=== PATIENT | female | born 1980 | race Caucasian/White ===

== ENCOUNTER 2019-04-04 12:25 | Day surgery (SDC) | payer OTHER ==
[~2019-04-04] VITALS: Ht 171.4 cm; Wt 63.8 kg
[~2019-04-04 12:25] MED LIST: DEXT15DR17 EACHEYE; PNV1TABL85 PO
[2019-04-04] MEDS ORDERED: LACTATED RINGERS 1,000 ML IV SCH ×2 (12:32→18:30)
[2019-04-04] MEDS ORDERED: ACETAMINOPHEN 500 MG TABLET PO ONE (13:00)
[2019-04-04] MEDS ORDERED: SCOPOLAMINE PATCH, 1.5MG PATCH.TD72 TD ONE (13:00)
[2019-04-04] MEDS ORDERED: GABAPENTIN 300 MG CAPSULE PO ONE (13:00)
[2019-04-04 13:10] LABS: HCG UR SG 1.033 (1.003-1.030)
[2019-04-04] MEDS ORDERED: FENTANYL PF 100 MCG/2ML ONE (16:07)
[2019-04-04] MEDS ORDERED: MIDAZOLAM 1 MG/ML, 2ML ONE (16:07)
[2019-04-04] MEDS ORDERED: BUPIVACAINE/PF 0.25% ONE (16:08)
[2019-04-04] MEDS ORDERED: SILVER NITRATE STICK TP ONE (16:08)
[2019-04-04] MEDS ORDERED: EPINEPHRINE 1 MG/ML, 1ML ONE (16:08)
[2019-04-04] MEDS ORDERED: INTERCEED 3 X 4 INCH DRESSING ONE (16:08)
[2019-04-04] MEDS ORDERED: PROPOFOL 10 MG/ML, 20ML ONE (16:35)
[2019-04-04] MEDS ORDERED: DEXAMETHASONE 4 MG/ML, 1ML ONE (16:35)
[2019-04-04] MEDS ORDERED: LIDOCAINE-MPF 2% ,5ML ONE (16:35)
[2019-04-04] MEDS ORDERED: ONDANSETRON 2MG/ML, 2ML ONE (16:35)
[2019-04-04] MEDS ORDERED: OXYcodone 5 MG/5 ML ORAL.SOL UDC PO PRN (17:00)
[2019-04-04] MEDS ORDERED: HYDROmorphone 2 MG/ML, 1ML IVPush PRN (17:00)
[2019-04-04] MEDS ORDERED: HALOPERIDOL 5 MG/ML IV PRN (17:00)
[2019-04-04] MEDS ORDERED: FENTANYL PF 100 MCG/2ML IV PRN (17:00)
[2019-04-04] MEDS ORDERED: MEPERIDINE/PF 25MG/ML,1ML IVPush PRN (17:00)
[2019-04-04] MEDS ORDERED: PROMETHAZINE 25 MG/ML, 1ML IV PRN (17:00)
[2019-04-04] MEDS ORDERED: IBUPROFEN 600 MG TABLET PO PRN (18:30)
[2019-04-04] MEDS ORDERED: OXYcodone/APAP 5/325MG TABLET PO PRN (18:30)
[2019-04-04] MEDS ORDERED: OXYC-302 PO (18:40)
[2019-04-04] MEDS ORDERED: IBUP200T49 PO (18:40)
[2019-04-04] MEDS ORDERED: ONDA4TAB7 PO (18:41)
== END 2019-04-04 19:37 | disposition home or self-care (01) ==
LOC: OUT 12:25 → 4NE 17:45 → OUT 19:37
PROVIDERS: ATTEND Obstetrics & Gynecology
DX: D06.0 Carcinoma in situ of endocervix (principal)
CPT/HCPCS: 57522; 81025; 88305; 88307; J0171; J1100; J2250; J2405; J2704; J3010; J3490; J7120; G0378

== ENCOUNTER 2019-06-05 07:00 | Day surgery (SDC) | payer OTHER ==
[2019-06-02 16:29] LABS: BASOPHILS # (AUTO) 0.03 x10^3/uL (0-0.1); BASOPHILS % (AUTO) 0 % (0-1); EOSINOPHILS % (AUTO) 3 % (1-7); LYMPHOCYTES # (AUTO) 1.41 x10^3/uL (1-3.4); LYMPHOCYTES % (AUTO) 20 % (22-44); MD NO; MEAN CORPUSCULAR HEMOGLOBIN 30.5 pg (27.0-34.8); MEAN CORPUSCULAR HGB CONC 33.5 g/dL (32.4-35.8); MEAN CORPUSCULAR VOLUME 90.9 fL (80-100); MEAN PLATELET VOLUME 7.7 fL (7.4-10.4); MONOCYTES # (AUTO) 0.31 x10^3/uL (0.2-0.8); MONOCYTES % (AUTO) 4 % (2-9); NEUTROPHILS # (AUTO) 5.27 x10^3/uL (1.8-6.8); NEUTROPHILS % (AUTO) 73 % (42-75); PLATELET COUNT 426 x10^3/uL (130-400); RED BLOOD COUNT 4.47 x10^6/uL (3.82-5.3); RED CELL DISTRIBUTION WIDTH 12.4 % (9.6-15.2)
[2019-06-02 16:34] LABS: ALBUMIN 4.3 g/dL (3.4-5.0); ANION GAP 5 mmol/L (5-15); CALCIUM 9.1 mg/dL (8.5-10.1); CHLORIDE 106 mmol/L (98-107)
[2019-06-02 16:41] LABS: ALANINE AMINOTRANSFERASE 23 U/L (12-78); ALKALINE PHOSPHATASE 79 U/L (45-117); BILIRUBIN,TOTAL 0.6 mg/dL (0.2-1.0); CREATININE 0.81 mg/dL (0.55-1.02); INTERNATIONAL NORMALIZED RATIO 0.98 (0.93-1.1); PROTHROMBIN TIME 10.3 Seconds (9.6-11.5)
[~2019-06-05] VITALS: Ht 171.4 cm; Wt 63.3 kg
[~2019-06-05 07:00] MED LIST changes: +IBUP200T49 PO; +LACT1CAP37 PO; +ONDA4TAB7 PO; +OXYC-302 PO; +[UNRECOGNIZED DRUG - OTHER] EACHEYE
[2019-06-05] MEDS ORDERED: LACTATED RINGERS 1,000 ML IV SCH (08:15)
[2019-06-05 08:17] VITALS: BP 104/71
[2019-06-05] MEDS ORDERED: FENTANYL PF 100 MCG/2ML ONE (09:08)
[2019-06-05] MEDS ORDERED: MIDAZOLAM 1 MG/ML, 2ML ONE (09:08)
[2019-06-05] MEDS ORDERED: PROPOFOL 10 MG/ML, 20ML ONE (09:11)
[2019-06-05] MEDS ORDERED: DEXAMETHASONE 4 MG/ML, 1ML ONE ×2 (09:11→09:49)
[2019-06-05] MEDS ORDERED: LIDOCAINE/MPF 2%-EPI 1:200K, 20 ML ONE (09:38)
[2019-06-05] MEDS ORDERED: ONDANSETRON 2MG/ML, 2ML ONE ×2 (09:49)
[2019-06-05] MEDS ORDERED: MEPERIDINE/PF 25MG/ML,1ML IVPush PRN (10:00)
[2019-06-05] MEDS ORDERED: FENTANYL PF 100 MCG/2ML IV PRN (10:00)
[2019-06-05] MEDS ORDERED: PROMETHAZINE 25 MG/ML, 1ML IV PRN (10:00)
[2019-06-05] MEDS ORDERED: HALOPERIDOL 5 MG/ML IV PRN (10:00)
[2019-06-05] MEDS ORDERED: MIDAZOLAM 1 MG/ML, 2ML IV PRN (10:00)
[2019-06-05] MEDS ORDERED: ONDANSETRON ODT 8 MG PO PRN (10:00)
[2019-06-05] MEDS ORDERED: LABETALOL 5MG/ML, 20ML IV PRN (10:00)
[2019-06-05] MEDS ORDERED: ALBUTEROL SULFATE 2.5 MG/3 ML NPPB PRN (10:00)
[2019-06-05] MEDS ORDERED: EPHEDRINE 50 MG/ML, 1ML IVPush PRN (10:00)
[2019-06-05] MEDS ORDERED: DIAZEPAM 5 MG/ML, 2ML IVPush PRN (10:00)
[2019-06-05] MEDS ORDERED: hydrALAzine 20 MG/ML, 1ML IV PRN (10:00)
[2019-06-05] MEDS ORDERED: PROMETHAZINE 12.5 MG SUPP PR PRN (10:00)
[2019-06-05] MEDS ORDERED: OXYcodone 5 MG/5 ML ORAL.SOL UDC PO PRN (10:00)
[2019-06-05] MEDS ORDERED: ACETAMINOPHEN 325 MG TABLET PO PRN (10:00)
[2019-06-05] MEDS ORDERED: HYDROmorphone 2 MG/ML, 1ML IVPush PRN (10:00)
[2019-06-05] MEDS ORDERED: ONDANSETRON 2MG/ML, 2ML IV PRN (10:00)
== END 2019-06-05 11:45 | disposition home or self-care (01) ==
LOC: OUT 07:00
PROVIDERS: ATTEND Specialist
DX: D06.0 Carcinoma in situ of endocervix (principal); N72 Inflammatory disease of cervix uteri; Z79.01 Long term (current) use of anticoagulants; Z79.899 Other long term (current) drug therapy; Z80.0 Family history of malignant neoplasm of digestive organs; Z82.61 Family history of arthritis
CPT/HCPCS: 36415; 57522; 80053; 84703; 85025; 85610; 85730; 88305; 88307; J1100; J2250; J2405; J2704; J3010; J3490; J7120